=== PATIENT | male | born 1975 | race Caucasian/White ===

== ENCOUNTER 2018-08-12 06:35 | Inpatient (IN) | payer OTHER ==
[2018-08-11 10:40] LABS: BASOPHILS # (AUTO) 0.1 (0.0-0.1); BASOPHILS % 0.8 % (0.0-1.0); EOSINOPHILS # (AUTO) 0.1 (0.0-0.4); EOSINOPHILS % 1.7 % (0.0-6.0); HEMOGLOBIN 17.6 g/dL (14.0-18.0); LYMPHOCYTES # (AUTO) 2.3 (1.0-3.2); LYMPHOCYTES % 36.3 % (18.0-39.1); MEAN CORPUSCULAR HEMOGLOBIN 32.1 pg (28-32); MEAN CORPUSCULAR HGB CONC 35.2 g/dL (31-35); MEAN CORPUSCULAR VOLUME 91.1 fL (81-99); MONOCYTES # (AUTO) 0.5 (0.2-0.8); MONOCYTES % 7.9 % (4.4-11.3); NEUTROPHILS # (AUTO) 3.4 (2.1-6.9); PLATELET COUNT 183 x10e3/uL (140-360); RED BLOOD COUNT 5.49 x10e6/uL (4.3-5.7); RED CELL DISTRIBUTION WIDTH 12.4 % (11.7-14.4)
[2018-08-11 11:14] LABS: BLOOD UREA NITROGEN 13 mg/dL (7-26); BUN/CREATININE RATIO 15 (6-25); CALCIUM 9.9 mg/dL (8.4-10.2); CARBON DIOXIDE 27 mmol/L (22-29); CHLORIDE 99 mmol/L (98-107); CREATININE, SERUM 0.87 mg/dL (0.72-1.25); EST GLOMERULAR FILTRATION RATE > 60 ML/MIN (60-); GLUCOSE 91 mg/dL (74-118); SODIUM 138 mmol/L (136-145)
[~2018-08-12] VITALS: Ht 165.1 cm; Wt 94.5 kg
[2018-08-12] MEDS ORDERED: XARELTO20 MG PO (08:06)
[2018-08-12] MEDS ORDERED: CEFOXITIN SOD 1 GM VIAL ONE (09:07)
[2018-08-12] MEDS ORDERED: MINERAL OIL STERILE 10ML VIAL ONE (09:36)
[2018-08-12] MEDS ORDERED: BUPIVACAINE 0.25%/EPI 30ML SDV INJ ONE (12:36)
[2018-08-12] MEDS ORDERED: HYDROMORPHONE 1MG/1ML INJ IV PRN (14:15)
[2018-08-12] MEDS ORDERED: PROMETHAZINE HCL (IM) 25 MG/ML VIAL IV PRN (14:15)
[2018-08-12 14:48] VITALS: BP 106/62
[2018-08-12] MEDS ORDERED: PROMETHAZINE 12.5MG/ NACL 0.9% 50 ML IV PRN (15:30)
[2018-08-12] MEDS: HYDROMORPHONE 2MG/ML 2 MG/ML ML IV PRN ×2 (16:05→19:48)
[2018-08-12] MEDS: CEFOXITIN SOD 1 GM VIAL IV SCH ×2 (16:05→23:06)
[2018-08-12] MEDS: ACETAMINOPHEN 1000 MG/100 ML IV PRN ×2 (16:05→23:07)
[2018-08-12] MEDS: PANTOPRAZOLE 40 MG 10ML VIAL IV SCH (16:05)
--- NOTE | 2018-08-12 16:07 | Operative Report ---
DATE OF PROCEDURE: August 12, 2018 PREOPERATIVE DIAGNOSIS: Recurring left colonic diverticulitis. POSTOPERATIVE DIAGNOSIS: Recurring left colonic diverticulitis. OPERATION PERFORMED: Laparoscopic-assisted left colectomy with mobilization of the splenic flexure. SALES LEDGER CLERK: Dr. Juliano Hunter. ANESTHESIA: General endotracheal. COMPLICATIONS: None. ESTIMATED BLOOD LOSS: 50 mL. DESCRIPTION OF PROCEDURE: With the patient lying in bed in the supine position with the legs in stirrups, the abdomen and perineum were prepped with Betadine solution and draped in the usual manner. A Veress needle was introduced into the umbilicus, and pneumoperitoneum was established without any difficulty. An 11 mm trocar was placed into the umbilicus, and a 10 mm video laparoscope was placed into the intraabdominal cavity. Under direct vision, two more 5 mm trocars were placed in the lower abdomen. Video laparoscopy at this point revealed the sigmoid colon to be stuck to the lateral gutter as expected from the patient's previous bouts of diverticulitis. The rest of the abdominal exploration showed a rather fatty left colon with a lot of excess omentum. Otherwise, the rest of the abdominal exploration was within normal limits. The left colon was mobilized off the lateral gutter using the Harmonic scalpel, and the splenic flexure was slowly and carefully brought down and from the spleen. There was quite a bit of fat around the splenic flexure. Nonetheless, the distal transverse colon was well mobilized so that it would reach all the way down, and the colon was swung medially without any difficulty and without any tension. After this had been completely done, the left ureter was also identified and preserved. A small incision was then made in the left lower quadrant to put the hand device in place, and this was done. The colon again was rather fatty, and we decided it would be best to just divide it in the mid sigmoid colon and then make it easier to dissect in both directions. The colon was then divided with an application of the contour stapler at the level of the mid sigmoid colon, and the distal colon was mobilized first and brought up into the wound without any difficulty. The mesentery was divided with the Harmonic scalpel, and at the level of the upper rectum the rectosigmoid junction was divided with an application of the contour device and the specimen was sent for pathological examination. The proximal colon was similarly dissected proximally all the way down to the splenic flexure and was at this point divided. A number 29 EEA anvil was then placed in the proximal colon and sutured in place with a purse-string suture of 2-0 Prolene. The colon reached down into the pelvis without any tension, and then we went from below; and after dilating the colon with the dilators, a 29 EEA stapler was then placed transanally and brought out through the center of the staple line in the rectosigmoid junction. The stapler and anvil were then joined, and the stapler was carefully closed and fired. Two perfect doughnuts were obtained. After this was done, gloves and instruments were changed. The anastomosis was then visualized and reinforced with interrupted sutures of 3-0 silk. The whole area was then thoroughly irrigated. Perfect hemostasis was ascertained. Laparoscopy was then again carried out, and there was no bleeding in the upper abdomen. All of the excess fluid was aspirated, and the pneumoperitoneum was evacuated and all the trocars were removed under direct vision. The left lower quadrant incision was closed with a running suture of 0 Vicryl for the peritoneum. The muscle was approximated with interrupted sutures of 0 Vicryl, and the external oblique aponeurosis was closed with a running suture of 0 Vicryl. The subcutaneous tissue was approximated with 2-0 chromic, and the skin was closed with clips. Dressings were applied. The sponge, lap and needle count was correct. The patient tolerated the procedure well and returned to the recovery room in stable condition. Job#: [id number]
[2018-08-12 17:44] VITALS: BP 106/62
[2018-08-12] MEDS: DEXTROSE 5%/LACTATED RINGERS 1,000 ML IV SCH (17:58)
[2018-08-12] MEDS ORDERED: CEFOXITIN 1GM/ NS 50ML 50 ML IV SCH (18:00)
[2018-08-12] MEDS ORDERED: NEOSTIGMINE 5 MG/5ML SYR ONE (18:16)
[2018-08-12] MEDS ORDERED: ROCURONIUM BROMIDE 10 MG/ML 5ML VIAL ONE (18:16)
[2018-08-12] MEDS ORDERED: MORPHINE SULFATE INJ 10 MG/ML ONE (18:16)
[2018-08-12] MEDS ORDERED: EPHEDRINE SULFATE INJ 50 MG/10 ML SYR ONE (18:16)
[2018-08-12] MEDS ORDERED: ACETAMINOPHEN 1000 MG/100 ML IV ONE (18:16)
[2018-08-12] MEDS ORDERED: PROPOFOL IV EMULSION 10 MG/ML 20 ML VIAL ONE (18:16)
[2018-08-12] MEDS ORDERED: MIDAZOLAM HCL 2 MG/2 ML VIAL ONE (18:16)
[2018-08-12] MEDS ORDERED: DEXAMETHASONE SOD PHOS INJ 4 MG/ML VIAL ONE (18:16)
[2018-08-12] MEDS ORDERED: GLYCOPYRROLATE INJ 1MG/ 5 ML SYR ONE (18:16)
[2018-08-12] MEDS ORDERED: FENTANYL CITRATE/PF 100MCG/2 ML INJ ONE (18:16)
[2018-08-12] MEDS ORDERED: ONDANSETRON HCL INJ 2 MG/ML VIAL ONE (18:16)
[2018-08-12] MEDS ORDERED: SEVOFLURANE INHAL SOLN 250 ML PEN BTL ONE (18:16)
[2018-08-12] MEDS ORDERED: LIDOCAINE HCL 2% LOCAL INJ 5 ML SDV VIAL INJ ONE (18:16)
[2018-08-12 19:28] VITALS: BP 107/58
[2018-08-12] MEDS: ENOXAPARIN SOD INJ 40 MG/0.4 ML SYR SC SCH (19:48)
[2018-08-12 19:50] VITALS: BP 107/58
[2018-08-12 23:18] VITALS: BP 113/64
[2018-08-13] VITALS (7 sets, daily range): BP systolic 95–121; BP diastolic 55–69
[2018-08-13] MEDS: HYDROMORPHONE 2MG/ML 2 MG/ML ML IV PRN ×6 (03:49→22:17)
[2018-08-13] MEDS: DEXTROSE 5%/LACTATED RINGERS 1,000 ML IV SCH ×3 (03:49→21:29)
[2018-08-13 05:46] LABS: BASOPHILS % 0.1 % (0.0-1.0); HEMATOCRIT 41.1 % (38.2-49.6); HEMOGLOBIN 14.1 g/dL (14.0-18.0); LYMPHOCYTES # (AUTO) 1.5 (1.0-3.2); LYMPHOCYTES % 16.3 % (18.0-39.1); MEAN CORPUSCULAR HEMOGLOBIN 31.2 pg (28-32); MEAN CORPUSCULAR HGB CONC 34.3 g/dL (31-35); MEAN CORPUSCULAR VOLUME 90.9 fL (81-99); MONOCYTES # (AUTO) 0.9 (0.2-0.8); MONOCYTES % 9.6 % (4.4-11.3); NEUTROPHILS # (AUTO) 6.6 (2.1-6.9); NEUTROPHILS % 73.7 % (38.7-80.0); PLATELET COUNT 152 x10e3/uL (140-360); RED BLOOD COUNT 4.52 x10e6/uL (4.3-5.7); RED CELL DISTRIBUTION WIDTH 12.6 % (11.7-14.4)
[2018-08-13 06:18] LABS: ANION GAP 12.6 mmol/L (8-16); BLOOD UREA NITROGEN 12 mg/dL (7-26); BUN/CREATININE RATIO 14 (6-25); CALCIUM 8.7 mg/dL (8.4-10.2); CARBON DIOXIDE 26 mmol/L (22-29); CHLORIDE 104 mmol/L (98-107); CREATININE, SERUM 0.83 mg/dL (0.72-1.25); EST GLOMERULAR FILTRATION RATE > 60 ML/MIN (60-); GLUCOSE 130 mg/dL (74-118); POTASSIUM 4.6 mmol/L (3.5-5.1); SODIUM 138 mmol/L (136-145)
[2018-08-13] MEDS: ENOXAPARIN SOD INJ 40 MG/0.4 ML SYR SC SCH (08:28)
[2018-08-13] MEDS ORDERED: ENOXAPARIN SOD INJ 40 MG/0.4 ML SYR SC SCH (09:00)
[2018-08-13] MEDS: PANTOPRAZOLE 40 MG 10ML VIAL IV SCH (15:04)
[2018-08-14] VITALS (8 sets, daily range): BP systolic 115–139; BP diastolic 54–79
[2018-08-14] MEDS: HYDROMORPHONE 2MG/ML 2 MG/ML ML IV PRN ×6 (02:53→20:58)
[2018-08-14] MEDS: DEXTROSE 5%/LACTATED RINGERS 1,000 ML IV SCH ×2 (07:30→16:56)
[2018-08-14 07:41] LABS: BASOPHILS % 0.5 % (0.0-1.0); EOSINOPHILS # (AUTO) 0.1 (0.0-0.4); EOSINOPHILS % 1.5 % (0.0-6.0); HEMATOCRIT 41.2 % (38.2-49.6); HEMOGLOBIN 13.9 g/dL (14.0-18.0); LYMPHOCYTES # (AUTO) 1.6 (1.0-3.2); LYMPHOCYTES % 20.6 % (18.0-39.1); MEAN CORPUSCULAR HEMOGLOBIN 31.4 pg (28-32); MEAN CORPUSCULAR HGB CONC 33.7 g/dL (31-35); MEAN CORPUSCULAR VOLUME 93.2 fL (81-99); MONOCYTES # (AUTO) 0.7 (0.2-0.8); MONOCYTES % 9.4 % (4.4-11.3); NEUTROPHILS # (AUTO) 5.1 (2.1-6.9); NEUTROPHILS % 67.7 % (38.7-80.0); PLATELET COUNT 135 x10e3/uL (140-360); RED BLOOD COUNT 4.42 x10e6/uL (4.3-5.7); RED CELL DISTRIBUTION WIDTH 12.6 % (11.7-14.4)
[2018-08-14 08:01] LABS: ANION GAP 13.1 mmol/L (8-16); BLOOD UREA NITROGEN 9 mg/dL (7-26); BUN/CREATININE RATIO 12 (6-25); CARBON DIOXIDE 25 mmol/L (22-29); CHLORIDE 103 mmol/L (98-107); CREATININE, SERUM 0.76 mg/dL (0.72-1.25); EST GLOMERULAR FILTRATION RATE > 60 ML/MIN (60-); GLUCOSE 110 mg/dL (74-118); POTASSIUM 4.1 mmol/L (3.5-5.1); SODIUM 137 mmol/L (136-145)
[2018-08-14] MEDS: ENOXAPARIN SOD INJ 40 MG/0.4 ML SYR SC SCH (09:00)
[2018-08-14] MEDS: PANTOPRAZOLE 40 MG 10ML VIAL IV SCH (16:30)
[2018-08-14] MEDS ORDERED: BISACODYL 10 MG SUPP PR NR ×3 (20:00)
[2018-08-15] VITALS (8 sets, daily range): BP systolic 120–137; BP diastolic 61–85
[2018-08-15] MEDS: DEXTROSE 5%/LACTATED RINGERS 1,000 ML IV SCH ×3 (03:13→14:13)
[2018-08-15] MEDS: HYDROMORPHONE 2MG/ML 2 MG/ML ML IV PRN ×3 (04:10→18:01)
[2018-08-15] MEDS ORDERED: BISACODYL 10 MG SUPP PR SCH (08:00)
[2018-08-15] MEDS ORDERED: BISACODYL 10 MG SUPP PR NR (08:00)
[2018-08-15 09:14] LABS: BASOPHILS # (AUTO) 0.1 (0.0-0.1); BASOPHILS % 0.7 % (0.0-1.0); EOSINOPHILS # (AUTO) 0.2 (0.0-0.4); HEMATOCRIT 42.5 % (38.2-49.6); HEMOGLOBIN 14.2 g/dL (14.0-18.0); LYMPHOCYTES # (AUTO) 1.6 (1.0-3.2); LYMPHOCYTES % 22.3 % (18.0-39.1); MEAN CORPUSCULAR HEMOGLOBIN 31.4 pg (28-32); MEAN CORPUSCULAR HGB CONC 33.4 g/dL (31-35); MONOCYTES # (AUTO) 0.7 (0.2-0.8); NEUTROPHILS # (AUTO) 4.9 (2.1-6.9); NEUTROPHILS % 65.7 % (38.7-80.0); PLATELET COUNT 128 x10e3/uL (140-360); RED BLOOD COUNT 4.52 x10e6/uL (4.3-5.7); RED CELL DISTRIBUTION WIDTH 12.3 % (11.7-14.4)
[2018-08-15] MEDS: ENOXAPARIN SOD INJ 40 MG/0.4 ML SYR SC SCH (09:15)
[2018-08-15 09:30] LABS: ANION GAP 14.8 mmol/L (8-16); BLOOD UREA NITROGEN 10 mg/dL (7-26); BUN/CREATININE RATIO 13 (6-25); CALCIUM 9.3 mg/dL (8.4-10.2); CARBON DIOXIDE 27 mmol/L (22-29); CHLORIDE 102 mmol/L (98-107); CREATININE, SERUM 0.76 mg/dL (0.72-1.25); EST GLOMERULAR FILTRATION RATE > 60 ML/MIN (60-); GLUCOSE 101 mg/dL (74-118); POTASSIUM 4.8 mmol/L (3.5-5.1); SODIUM 139 mmol/L (136-145)
[2018-08-15] MEDS: PANTOPRAZOLE 40 MG 10ML VIAL IV SCH (15:30)
[2018-08-15] MEDS ORDERED: ZOLPIDEM TARTRATE 10 MG TAB PO PRN (19:15)
[2018-08-16] VITALS (7 sets, daily range): BP systolic 115–132; BP diastolic 59–82
[2018-08-16] MEDS: HYDROMORPHONE 2MG/ML 2 MG/ML ML IV PRN ×4 (03:07→22:28)
[2018-08-16] MEDS: DEXTROSE 5%/LACTATED RINGERS 1,000 ML IV SCH (05:55)
[2018-08-16] MEDS: ENOXAPARIN SOD INJ 40 MG/0.4 ML SYR SC SCH (10:00)
[2018-08-16] MEDS: HYDROCODONE/APAP 7.5MG-325MG 1 EA TAB PO PRN (15:22)
[2018-08-16] MEDS: PANTOPRAZOLE 40 MG 10ML VIAL IV SCH (15:30)
[2018-08-17] VITALS: BP 114/72
[2018-08-17 00:15] VITALS: BP 114/72
[2018-08-17] MEDS: HYDROMORPHONE 2MG/ML 2 MG/ML ML IV PRN (03:13)
[2018-08-17 04:00] VITALS: BP 104/70
[2018-08-17] MEDS: ENOXAPARIN SOD INJ 40 MG/0.4 ML SYR SC SCH (08:25)
[2018-08-17] MEDS: PANTOPRAZOLE 40 MG 10ML VIAL IV SCH (08:29)
[2018-08-17 09:47] VITALS: BP 108/59
[2018-08-17] MEDS: HYDROCODONE/APAP 7.5MG-325MG 1 EA TAB PO PRN ×2 (10:08→14:26)
[2018-08-17 12:00] VITALS: BP 114/73
[2018-08-17] MEDS ORDERED: SIMETHICONE 80 MG CHEW PO PRN (15:00)
[2018-08-17] MEDS ORDERED: BISACODYL 10 MG SUPP PR ONE (15:00)
[2018-08-17] MEDS: DEXTROSE 5%/LACTATED RINGERS 1,000 ML IV SCH (15:56)
[2018-08-17 16:00] VITALS: BP 127/78
[2018-08-17] MEDS ORDERED: PANTOPRAZOLE SOD 40 MG TABEC PO SCH (17:00)
[2018-08-17] MEDS ORDERED: NORCO 7.5-3251 EACH PO (18:35)
== END 2018-08-17 19:23 | disposition home or self-care (01) | DRG 331 ==
LOC: OR 06:35 → PACU V 14:13 → MED/SURG 14:56
PROVIDERS: ADMIT Surgery; ATTEND Surgery
PROC: 0DTN4ZZ Resection of Sigmoid Colon, Percutaneous Endoscopic Approach (ICD-10-PCS; principal; 2018-08-12 08:30)
DX: K57.92 Diverticulitis of intestine, part unspecified, without perforation or abscess without bleeding (principal)
CPT/HCPCS: 36415; 80048; 85025; 86850; 86900; 88307; 93005; 96361; C1766; J0694; J1100; J1650; J2001; J2250; J2270; J2405